=== PATIENT | male | born 1970 | race Caucasian/White ===

== ENCOUNTER 2023-01-20 14:53 | Emergency (ER) | payer BC, OTHER ==
[~2023-01-20] VITALS: Ht 180.3 cm; Wt 102.1 kg
[2023-01-20] MEDS ORDERED: DIAZEPAM 5 MG TAB PO STA (15:31)
[2023-01-20] MEDS ORDERED: HYDROCODONE/APAP 5MG-325MG TAB PO ONE (15:45)
[2023-01-20] MEDS ORDERED: KETOROLAC TROMETHAMINE 60 MG/2 ML VIAL IM ONE (15:45)
[2023-01-20] MEDS ORDERED: MEDROL4 M2 PO (18:59)
[2023-01-20] MEDS ORDERED: METHOCARBAMOL750 MG PO (18:59)
[2023-01-20 19:17] VITALS: BP 138/89; PULSE 90; RESP 21; O2SAT 99
== END 2023-01-20 19:16 | disposition home or self-care (01) ==
LOC: ER 15:31
DX: M47.812 Spondylosis without myelopathy or radiculopathy, cervical region (principal); R25.2 Cramp and spasm; K21.9 Gastro-esophageal reflux disease without esophagitis
CPT/HCPCS: 72125; 99283; J1885